=== PATIENT | female | born 1990 | race Caucasian/White ===

== ENCOUNTER 2018-06-02 21:33 | Emergency (ER) | payer OTHER ==
[2018-06-02] MEDS: AUGMENTIN 875 MG TAB PO (23:00)
[2018-06-02] MEDS: ADACEL/BOOSTRIX VACCINE (DIPHTH/PERTUSS/ACELL/TETANUS)0.5ML SYR (90715) IM (23:00)
== END 2018-06-02 23:19 | disposition home or self-care (01) ==
LOC: M ED 21:33
DX: S40.811A Abrasion of right upper arm, initial encounter (principal); W55.03XA Scratched by cat, initial encounter; Y92.019 Unspecified place in single-family (private) house as the place of occurrence of the external cause; F17.200 Nicotine dependence, unspecified, uncomplicated
CPT/HCPCS: 90715